=== PATIENT | male | born 1950 | race Caucasian/White ===

== ENCOUNTER 2016-08-19 11:29 | Inpatient (IN) | payer OTHER ==
[~2016-08-19] VITALS: Ht 182.9 cm; Wt 104.0 kg
[~2016-08-19 11:29] MED LIST: AMIO200T42 PO; ASPI-621 PO; LISI5TAB7 PO; LOVA10TA PO; METO25TA35 PO
[2016-08-19] MEDS ORDERED: SODIUM CHLORIDE 0.9% 1,000 ML IV ONE (11:47)
[2016-08-19] MEDS ORDERED: BUPIVACAINE/PF 0.5% ONE ×2 (11:55→14:59)
[2016-08-19] MEDS ORDERED: LIDOCAINE 1%, 20ML ONE (11:55)
[2016-08-19] MEDS ORDERED: DIPH,PERTUSS(ACELL),TET VAC/PF 0.5 ML IM-VACC ONE (12:00)
[2016-08-19] MEDS ORDERED: LIDOCAINE 1%, 20ML SQ ONE (12:00)
[2016-08-19] MEDS ORDERED: CEFAZOLIN 1,000 MG IM ONE (12:00)
[2016-08-19] MEDS ORDERED: SODIUM CHLORIDE FLUSH 10ML SYR IVF ONE (12:00)
[2016-08-19] MEDS ORDERED: BUPIVACAINE/PF 0.5% INFIL ONE (12:00)
[2016-08-19 12:39] LABS: BLOOD UREA NITROGEN 19 mg/dL (7-18)
[2016-08-19] MEDS ORDERED: CLINDAMYCIN PMX 600MG/50ML 50 ML IV ONE (13:00)
[2016-08-19] MEDS ORDERED: CEFAZOLIN PMX 1GM/50ML 0 ML ONE (13:45)
[2016-08-19] MEDS ORDERED: CEFAZOLIN PMX 1GM/50ML 50 ML ONE (13:46)
[2016-08-19] MEDS ORDERED: FENTANYL PF 250 MCG/5ML ONE (14:08)
[2016-08-19] MEDS ORDERED: NEOSTIGMINE 1 MG/ML, 10ML ONE (14:23)
[2016-08-19] MEDS ORDERED: DEXAMETHASONE 4 MG/ML, 1ML ONE (14:23)
[2016-08-19] MEDS ORDERED: METOCLOPRAMIDE 5 MG/ML, 2ML ONE (14:23)
[2016-08-19] MEDS ORDERED: PROPOFOL 10 MG/ML, 20ML ONE (14:23)
[2016-08-19] MEDS ORDERED: SUCCINYLCHOLINE 20 MG/ML, 10ML ONE (14:23)
[2016-08-19] MEDS ORDERED: ROCURONIUM 10 MG/ML ONE (14:23)
[2016-08-19] MEDS ORDERED: CEFAZOLIN 1,000 MG ONE (14:23)
[2016-08-19] MEDS ORDERED: ONDANSETRON 2MG/ML, 2ML ONE (14:23)
[2016-08-19] MEDS ORDERED: GLYCOPYRROLATE 0.2MG/1ML ONE (14:23)
[2016-08-19] MEDS ORDERED: BACITRACIN OINT 500U/GM, 15 GM ONE (14:59)
[2016-08-19] MEDS ORDERED: hydrALAzine 20 MG/ML, 1ML IV PRN (15:30)
[2016-08-19] MEDS ORDERED: HYDROmorphone 1 MG/ML, 1ML IV PRN (15:30)
[2016-08-19] MEDS ORDERED: LABETALOL 5MG/ML, 20ML IV PRN (15:30)
[2016-08-19] MEDS ORDERED: OXYcodone 5 MG/5 ML ORAL.SOL UDC PO PRN (15:30)
[2016-08-19] MEDS ORDERED: ONDANSETRON 2MG/ML, 2ML IVPush PRN (15:30)
[2016-08-19] MEDS ORDERED: METOPROLOL 1 MG/ML, 5ML IV PRN (15:30)
[2016-08-19] MEDS ORDERED: EPHEDRINE 50 MG/ML, 1ML IVPush PRN (15:30)
[2016-08-19] MEDS ORDERED: FENTANYL PF 100 MCG/2ML IV PRN (15:30)
[2016-08-19] MEDS ORDERED: ALBUTEROL SULFATE 2.5 MG/3 ML NPPB PRN (15:30)
[2016-08-19] MEDS ORDERED: ACETAMINOPHEN 325 MG TABLET PO PRN (15:30)
[2016-08-19] MEDS ORDERED: D5%-0.45% NACL 1,000 ML IV SCH (15:59)
[2016-08-19] MEDS ORDERED: DIPHENHYDRAMINE 25 MG CAPSULE PO PRN (16:00)
[2016-08-19] MEDS ORDERED: PROMETHAZINE 25 MG/ML, 1ML IM PRN (16:00)
[2016-08-19] MEDS ORDERED: HYDROcodone/APAP 5/325 TABLET PO PRN (16:00)
[2016-08-19] MEDS ORDERED: ONDANSETRON 2MG/ML, 2ML IV PRN (16:00)
[2016-08-19] MEDS ORDERED: MORPHINE SULFATE 4 MG/ML, 1ML IV PRN (16:00)
[2016-08-19] MEDS ORDERED: OXYcodone 5 MG/5 ML ORAL.SOL UDC ONE (16:31)
[2016-08-19 17:30] VITALS: BP 167/85
[2016-08-19] MEDS: CLINDAMYCIN PMX 600MG/50ML 50 ML IVPB SCH (18:35)
[2016-08-19] MEDS: METOPROLOL TARTRATE 25 MG TABLET PO SCH (18:35)
[2016-08-19 20:06] VITALS: BP 163/87
[2016-08-19] MEDS: OXYcodone/APAP 5/325MG TABLET PO PRN ×2 (20:09→23:57)
[2016-08-19] MEDS ORDERED: LOVASTATIN 10 MG PO SCH (21:00)
[2016-08-19] MEDS ORDERED: LOVASTATIN 40 MG TABLET PO SCH ×2 (21:00)
[2016-08-20 00:06] VITALS: BP 109/65
[2016-08-20] MEDS ORDERED: OXYC-302 PO (00:43)
[2016-08-20] MEDS ORDERED: CLIN300C93 PO (00:45)
[2016-08-20] MEDS: CLINDAMYCIN PMX 600MG/50ML 50 ML IVPB SCH ×2 (02:51→10:52)
[2016-08-20 04:44] VITALS: BP 126/75
[2016-08-20] MEDS: OXYcodone/APAP 5/325MG TABLET PO PRN ×2 (04:49→09:16)
[2016-08-20] MEDS: METOPROLOL TARTRATE 25 MG TABLET PO SCH (06:08)
[2016-08-20 07:37] VITALS: BP 144/83
[2016-08-20] MEDS ORDERED: LISINOPRIL 5 MG TABLET PO SCH (09:00)
[2016-08-20] MEDS ORDERED: AMIODARONE 200 MG TABLET PO SCH (09:00)
[2016-08-20] MEDS ORDERED: GABA100C PO (09:11)
[2016-08-20 12:30] VITALS: BP 144/83
[2016-08-20] MEDS ORDERED: GABAPENTIN 300 MG CAPSULE PO SCH (21:00)
== END 2016-08-20 12:45 | disposition home or self-care (01) | DRG 513 ==
LOC: ED 11:53 → EDIP 13:34 → 4NOR 17:20
PROVIDERS: ADMIT Orthopaedic Surgery Orthopaedic Surgery of the Spine; ATTEND Orthopaedic Surgery Orthopaedic Surgery of the Spine
PROC: 0JDK0ZZ Extraction of Left Hand Subcutaneous Tissue and Fascia, Open Approach (ICD-10-PCS; 2016-08-19)
PROC: 3E0T3BZ Introduction of Anesthetic Agent into Peripheral Nerves and Plexi, Percutaneous Approach (ICD-10-PCS; 2016-08-19)
PROC: 0PSVXZZ Reposition Left Finger Phalanx, External Approach (ICD-10-PCS; 2016-08-19)
PROC: 3E0T3CZ (ICD-10-PCS; 2016-08-19)
PROC: 0PSV04Z Reposition Left Finger Phalanx with Internal Fixation Device, Open Approach (ICD-10-PCS; principal; 2016-08-19 13:30)
DX: S62.637B Displaced fracture of distal phalanx of left little finger, initial encounter for open fracture (principal); S66.325A Laceration of extensor muscle, fascia and tendon of left ring finger at wrist and hand level, initial encounter; I10 Essential (primary) hypertension; E78.00 Pure hypercholesterolemia, unspecified; W01.0XXA Fall on same level from slipping, tripping and stumbling without subsequent striking against object, initial encounter; Y93.89 Activity, other specified; Y92.89 Other specified places as the place of occurrence of the external cause; Y99.8 Other external cause status
CPT/HCPCS: 36415; 76000; 80048; 82040; 85025; 96360; 96361; 96372; J0690; J1100; J2405; J2704; J2710; J3010; J3490; J0330; J2765; J7030

== ENCOUNTER 2016-08-25 11:57 | Day surgery (SDC) | payer OTHER ==
[~2016-08-25] VITALS: Ht 182.9 cm; Wt 102.0 kg
[~2016-08-25 11:57] MED LIST changes: +CLIN300C93 PO; +GABA100C PO; +OXYC-302 PO
[2016-08-25] MEDS ORDERED: LISI5TAB7 PO (12:33)
[2016-08-25] MEDS ORDERED: METO25TA35 PO (12:33)
[2016-08-25] MEDS ORDERED: AMIO200T42 PO (12:33)
[2016-08-25 12:35] VITALS: BP 177/101
[2016-08-25] MEDS ORDERED: LACTATED RINGERS 1,000 ML IV SCH (12:40)
[2016-08-25] MEDS ORDERED: LIDOCAINE 1%, 2ML SQ PRN (13:00)
[2016-08-25] MEDS ORDERED: BUPIVACAINE/PF-EPI 0.25% 1:200K ONE (13:02)
[2016-08-25] MEDS ORDERED: ROCURONIUM 10 MG/ML ONE (14:05)
[2016-08-25] MEDS ORDERED: KETOROLAC 30 MG/1 ML ONE (14:05)
[2016-08-25] MEDS ORDERED: PROPOFOL 10 MG/ML, 20ML ONE (14:05)
[2016-08-25] MEDS ORDERED: DEXAMETHASONE 4 MG/ML, 1ML ONE (14:05)
[2016-08-25] MEDS ORDERED: ONDANSETRON 2MG/ML, 2ML ONE (14:05)
[2016-08-25] MEDS ORDERED: CEFAZOLIN 1,000 MG ONE (14:05)
[2016-08-25] MEDS ORDERED: SUCCINYLCHOLINE 20 MG/ML, 10ML ONE (14:05)
[2016-08-25] MEDS ORDERED: BUPIVACAINE/PF 0.5% ONE (14:59)
[2016-08-25] MEDS ORDERED: PROMETHAZINE 25 MG/ML, 1ML IV PRN (15:00)
[2016-08-25] MEDS ORDERED: HYDROmorphone 1 MG/ML, 1ML IV PRN (15:00)
[2016-08-25] MEDS ORDERED: OXYcodone 5 MG/5 ML ORAL.SOL UDC PO PRN (15:00)
[2016-08-25] MEDS ORDERED: ONDANSETRON 2MG/ML, 2ML IVPush PRN (15:00)
[2016-08-25] MEDS ORDERED: LABETALOL 5MG/ML, 20ML IV PRN (15:00)
[2016-08-25] MEDS ORDERED: hydrALAzine 20 MG/ML, 1ML IV PRN (15:00)
[2016-08-25] MEDS ORDERED: FENTANYL PF 100 MCG/2ML IV PRN (15:00)
[2016-08-25] MEDS ORDERED: ACETAMINOPHEN 325 MG TABLET PO PRN (15:00)
[2016-08-25] MEDS ORDERED: OXYcodone 5 MG/5 ML ORAL.SOL UDC ONE (15:18)
[2016-08-25] MEDS ORDERED: ACETAMINOPHEN 325 MG/10.15 ML UDC ONE (15:18)
[2016-08-25] MEDS ORDERED: FENTANYL PF 100 MCG/2ML ONE (15:18)
[2016-08-25] MEDS ORDERED: hydrALAzine 20 MG/ML, 1ML ONE (15:34)
== END 2016-08-25 16:50 | disposition home or self-care (01) ==
LOC: OUT 11:57 → MERGE 14:00 → OUT 16:50
PROVIDERS: ATTEND Orthopaedic Surgery
DX: S62.637B Displaced fracture of distal phalanx of left little finger, initial encounter for open fracture (principal); S61.215A Laceration without foreign body of left ring finger without damage to nail, initial encounter; I10 Essential (primary) hypertension; J45.909 Unspecified asthma, uncomplicated; X58.XXXA Exposure to other specified factors, initial encounter; Y93.9 Activity, unspecified; Y92.9 Unspecified place or not applicable; Y99.9 Unspecified external cause status
CPT/HCPCS: 26860; 73140; 76000; 93005; J0330; J0360; J0690; J1100; J1885; J2250; J2405; J2704; J3010; J3490; J7120

== ENCOUNTER 2018-06-02 12:29 | Observation (INO) | payer OTHER, MEDICARE ==
[~2018-06-02] VITALS: Ht 182.9 cm; Wt 100.3 kg
[~2018-06-02 12:29] MED LIST changes: -ASPI-621 PO; +ASPI81TA45 PO; +CLIN300C8 PO; -CLIN300C93 PO
--- NOTE | 2018-06-02 12:34 | NUR ---
PT NOT IN LOBBY, WENT TO GET CELL PHONE PER SECURITY.
[2018-06-02] MEDS ORDERED: SODIUM CHLORIDE FLUSH 10ML SYR IVF ONE (13:00)
[2018-06-02] MEDS ORDERED: ASPIRIN 81 MG TABLET CHEW PO ONE (13:00)
--- NOTE | 2018-06-02 13:07 | NUR ---
RECEIVED REPORT FROM ELY BAILEY, ASSUMING CARE AT THIS TIME.
[2018-06-02] MEDS ORDERED: ASPIRIN 81 MG TABLET CHEW ONE (13:10)
[2018-06-02 13:13] LABS: BASOPHILS # (AUTO) 0.07 x10^3/uL (0-0.1); BASOPHILS % (AUTO) 1 % (0-1); EOSINOPHILS # (AUTO) 0.06 x10^3/uL (0-0.4); EOSINOPHILS % (AUTO) 1 % (1-7); LYMPHOCYTES # (AUTO) 0.69 x10^3/uL (1-3.4); LYMPHOCYTES % (AUTO) 10 % (22-44); MD NO; MEAN CORPUSCULAR HEMOGLOBIN 28.6 pg (27.5-34.5); MEAN CORPUSCULAR HGB CONC 32.8 g/dL (33.2-36.2); MEAN CORPUSCULAR VOLUME 87.3 fL (81-97); MEAN PLATELET VOLUME 8.2 fL (7.4-10.4); MONOCYTES # (AUTO) 0.48 x10^3/uL (0.2-0.8); MONOCYTES % (AUTO) 7 % (2-9); NEUTROPHILS # (AUTO) 5.92 x10^3/uL (1.8-6.8); NEUTROPHILS % (AUTO) 82 % (42-75); PLATELET COUNT 333 x10^3/uL (130-400); RED BLOOD COUNT 4.43 x10^6/uL (4.38-5.82); RED CELL DISTRIBUTION WIDTH 14.6 % (9.4-14.8)
[2018-06-02 13:24] LABS: ALANINE AMINOTRANSFERASE 27 U/L (12-78); ALBUMIN 3.5 g/dL (3.4-5.0); ANION GAP 8 mmol/L (5-15); CALCIUM 8.9 mg/dL (8.5-10.1); CHLORIDE 110 mmol/L (98-107)
[2018-06-02 13:29] LABS: ALKALINE PHOSPHATASE 49 U/L (45-117); BILIRUBIN,TOTAL 0.4 mg/dL (0.2-1.0); CREATININE 1.61 mg/dL (0.7-1.3); TOTAL PROTEIN 6.8 g/dL (6.4-8.2); TROPONIN I < 0.015 ng/mL (0.000-0.045)
--- NOTE | 2018-06-02 13:44 | NUR ---
ALL RESULTS BACK AT THIS TIME, CHART UP FOR RECHECK
--- NOTE | 2018-06-02 14:15 | NUR ---
IV PLACED, HOSPITALIST AT BEDSIDE FOR ADMIT. VSS. CALL LIGHT WITHIN REACH. AWAITING ROOM ASSIGNMENT ON FLOOR
[2018-06-02] MEDS ORDERED: ONDANSETRON 2MG/ML, 2ML IVPush PRN (14:30)
[2018-06-02] MEDS ORDERED: ONDANSETRON ODT 4 MG PO PRN (14:30)
[2018-06-02] MEDS ORDERED: morphine SULFATE 10 MG/ML, 1ML IVPush PRN (14:30)
[2018-06-02] MEDS ORDERED: LABETALOL 5MG/ML, 20ML IVPush PRN (14:30)
[2018-06-02 14:47] LABS: FREE T4 (FREE THYROXINE) 1.2 ng/dL (0.76-1.46)
[2018-06-02] MEDS ORDERED: HEPARIN 5,000 UNITS/ML, 1ML ONE (15:35)
[2018-06-02] MEDS: HEPARIN 5,000 UNITS/ML, 1ML SQ SCH ×2 (15:38→21:41)
--- NOTE | 2018-06-02 15:38 | NUR ---
PT RESTING IN ROOM. NADN. ALL NEEDS MET AT THIS TIME. CALL LIGHT WITHIN REACH. AWAITING ROOM ON FLOOR, CURRENTLY NO BEDS, HOLDING IN ER.
[2018-06-02 17:09] LABS: TROPONIN I < 0.015 ng/mL (0.000-0.045)
--- NOTE | 2018-06-02 18:34 | NUR ---
PT GIVEN [facility] DIET TRAY, EATING IN ROOM. ALL NEEDS MET AT THIS TIME. PT UNDERSTANDS NPO AT MIDNIGHT
--- NOTE | 2018-06-02 19:45 | NUR ---
REPORT GIVEN TO NICOLASA RN, PT READY FOR TRANSPORT
[2018-06-02 20:10] VITALS: BP 160/72
[2018-06-02] MEDS ORDERED: LOVASTATIN 10 MG TABLET PO SCH (21:00)
[2018-06-02 21:19] VITALS: BP 160/72
[2018-06-02 22:15] LABS: TROPONIN I < 0.015 ng/mL (0.000-0.045)
[2018-06-03 00:08] VITALS: BP 125/64
[2018-06-03 04:39] LABS: BASOPHILS # (AUTO) 0.08 x10^3/uL (0-0.1); BASOPHILS % (AUTO) 1 % (0-1); EOSINOPHILS # (AUTO) 0.18 x10^3/uL (0-0.4); EOSINOPHILS % (AUTO) 3 % (1-7); LYMPHOCYTES # (AUTO) 1.74 x10^3/uL (1-3.4); LYMPHOCYTES % (AUTO) 30 % (22-44); MD NO; MEAN CORPUSCULAR HEMOGLOBIN 27.7 pg (27.5-34.5); MEAN CORPUSCULAR HGB CONC 31.7 g/dL (33.2-36.2); MEAN CORPUSCULAR VOLUME 87.3 fL (81-97); MEAN PLATELET VOLUME 8.6 fL (7.4-10.4); MONOCYTES # (AUTO) 0.53 x10^3/uL (0.2-0.8); MONOCYTES % (AUTO) 9 % (2-9); NEUTROPHILS # (AUTO) 3.28 x10^3/uL (1.8-6.8); NEUTROPHILS % (AUTO) 57 % (42-75); PLATELET COUNT 299 x10^3/uL (130-400); RED BLOOD COUNT 4.37 x10^6/uL (4.38-5.82); RED CELL DISTRIBUTION WIDTH 14.7 % (9.4-14.8)
[2018-06-03 04:48] LABS: ALBUMIN 3.3 g/dL (3.4-5.0); ANION GAP 5 mmol/L (5-15); CALCIUM 8.4 mg/dL (8.5-10.1); CHLORIDE 111 mmol/L (98-107)
[2018-06-03 04:59] LABS: ALANINE AMINOTRANSFERASE 27 U/L (12-78); ALKALINE PHOSPHATASE 46 U/L (45-117); BILIRUBIN,TOTAL 0.3 mg/dL (0.2-1.0); CREATININE 1.52 mg/dL (0.7-1.3); TOTAL PROTEIN 6.3 g/dL (6.4-8.2)
[2018-06-03] MEDS: HEPARIN 5,000 UNITS/ML, 1ML SQ SCH ×2 (05:12→15:02)
[2018-06-03] MEDS ORDERED: ASPIRIN 81 MG TABLET EC PO SCH (06:00)
[2018-06-03] MEDS ORDERED: PANTOPRAZOLE 40 MG IV IVPush SCH (07:30)
[2018-06-03 07:50] VITALS: BP 156/85
[2018-06-03] MEDS ORDERED: LISINOPRIL 5 MG TABLET PO SCH (09:00)
[2018-06-03] MEDS ORDERED: METOPROLOL TARTRATE 25 MG TABLET PO SCH (09:00)
[2018-06-03] MEDS ORDERED: AMIODARONE 200 MG TABLET PO SCH (09:00)
[2018-06-03] MEDS ORDERED: REGADENOSON 0.4 MG/5 ML SYRINGE ONE (09:45)
[2018-06-03 13:21] VITALS: BP 117/67
[2018-06-03] MEDS ORDERED: PANT20TA3 PO (17:23)
[2018-06-03] MEDS ORDERED: AMIO200T42 PO (17:23)
== END 2018-06-03 18:50 | disposition home or self-care (01) ==
LOC: ED 13:24 → EDIP 14:05 → ICU 20:00
PROVIDERS: ADMIT Hospitalist; ATTEND Hospitalist
DX: R07.89 Other chest pain (principal); I12.9 Hypertensive chronic kidney disease with stage 1 through stage 4 chronic kidney disease, or unspecified chronic kidney disease; E78.5 Hyperlipidemia, unspecified; D64.9 Anemia, unspecified; E78.00 Pure hypercholesterolemia, unspecified; K21.9 Gastro-esophageal reflux disease without esophagitis; N18.9 Chronic kidney disease, unspecified; Z79.899 Other long term (current) drug therapy; Z82.3 Family history of stroke; Z82.49 Family history of ischemic heart disease and other diseases of the circulatory system
CPT/HCPCS: 36415; 71045; 78452; 80053; 83690; 83735; 84100; 84439; 84443; 84484; 85025; 87081; 93005; 93017; 93306; 96372; 96374; 99284; A9502; C9113; C9898; G0378; J1644; J2785